=== PATIENT | female | born 1990 | race African-American/Black ===

== ENCOUNTER 2017-12-01 16:15 | Outpatient (CLI) | payer OTHER ==
[2017-12-01 17:09] LABS: BILIRUBIN,URINE NEGATIVE (NEGATIVE); GLUCOSE, URINE (UA) NEGATIVE (NEGATIVE); KETONES,URINE (UA) NEGATIVE (NEGATIVE); LEUKOCYTE ESTERASE, URINE NEGATIVE (NEGATIVE); NITRITE,URINE NEGATIVE (NEGATIVE); OCCULT BLOOD,URINE NEGATIVE (NEGATIVE); PROTEIN,URINE NEGATIVE (NEGATIVE); UROBILINOGEN,URINE 0.2 (NORMAL) E.U./dL (NORMAL)
[2017-12-01 17:14] LABS: CLARITY,URINE CLEAR (CLEAR)
[2017-12-01] MEDS ORDERED: ONDANSETRON 4 MG/2 ML VIAL IVP PRN (18:03)
[2017-12-01] MEDS ORDERED: SODIUM CHLORIDE FLUSH 0.9% 10 ML SYRINGE ONE (18:30)
[2017-12-01] MEDS ORDERED: LACTATED RINGERS 1,000 ML IV SCH (19:00)
[2017-12-01 19:44] VITALS: BP 127/73
== END 2017-12-01 21:50 | disposition home or self-care (01) ==
LOC: WFO 16:15 → FBP 16:18 → WFO 21:50
PROVIDERS: ATTEND Obstetrics & Gynecology
DX: O99.283 Endocrine, nutritional and metabolic diseases complicating pregnancy, third trimester (principal); E86.0 Dehydration; Z3A.31 31 weeks gestation of pregnancy
CPT/HCPCS: 81003; 99212; J7120; 81001; 87086; 96374